=== PATIENT | female | born 1990 | race Caucasian/White ===

== ENCOUNTER → 2016-11-13 | Outpatient (CLI) | payer OTHER ==
[~2016-11-13] MED LIST: CIPROFLOXACIN750 MG PO; COLACE 100MG C100 MG PO; NORCO 5-325 TA1 EACH PO; ZYRTEC10 MG PO
== END ==
LOC: GENOP 11:40
DX: O99.89 Other specified diseases and conditions complicating pregnancy, childbirth and the puerperium (principal); Z3A.32 32 weeks gestation of pregnancy; R10.9 Unspecified abdominal pain
CPT/HCPCS: 81001; G0463

== ENCOUNTER → 2016-11-21 | Outpatient (CLI) | payer OTHER | LOC: KOH-I 10:00 | DX: R10.11 Right upper quadrant pain (principal) | CPT/HCPCS: 76705 ==

== ENCOUNTER 2016-12-29 02:41 | Inpatient (IN) | payer OTHER ==
[~2016-12-29] VITALS: Ht 160 cm; Wt 158.8 kg
[2016-12-29 04:05] LABS: RED BLOOD COUNT 4.38 M/UL (4.00-5.10); WHITE BLOOD COUNT 17.6 K/UL (4.5-11.0)
[2016-12-30 05:05] LABS: HEMOGLOBIN 9.9 gm/dl (12.3-15.3)
[2016-12-31] MEDS ORDERED: COLACE 100MG C100 MG PO (12:43)
== END 2016-12-31 11:20 | disposition home or self-care (01) | DRG 765 ==
LOC: GENOP 02:41 → OB 05:45
PROVIDERS: ADMIT Obstetrics & Gynecology
PROC: 10D00Z1 Extraction of Products of Conception, Low, Open Approach (ICD-10-PCS; principal; 2016-12-29 07:59)
DX: O34.211 Maternal care for low transverse scar from previous cesarean delivery (principal); Z68.44 Body mass index [BMI] 60.0-69.9, adult; N85.8 Other specified noninflammatory disorders of uterus; O99.214 Obesity complicating childbirth; E66.01 Morbid (severe) obesity due to excess calories; O13.4 Gestational [pregnancy-induced] hypertension without significant proteinuria, complicating childbirth; Z3A.38 38 weeks gestation of pregnancy; Z37.0 Single live birth
CPT/HCPCS: 36415; 81001; 82800; 85014; 85018; 85025; C9113; J0690; J1650; J2274; J2405; J2550; J2590; J2765; J3010; J3430; J7050; J7120

== ENCOUNTER 2017-01-14 11:19 | Day surgery (SDC) | payer OTHER ==
[~2017-01-14] VITALS: Ht 160 cm; Wt 142.9 kg
[~2017-01-14 11:19] MED LIST changes: -CIPROFLOXACIN750 MG PO; -NORCO 5-325 TA1 EACH PO; -ZYRTEC10 MG PO
[2017-01-14 11:51] LABS: RED BLOOD COUNT 4.45 M/UL (4.00-5.10); WHITE BLOOD COUNT 10.5 K/UL (4.5-11.0)
[2017-01-14] MEDS ORDERED: NORCO 5-325 TA1 EACH PO (11:58)
[2017-01-14] MEDS ORDERED: ZYRTEC10 MG PO (12:01)
[2017-01-15 06:32] LABS: HEMOGLOBIN 10.3 gm/dl (12.3-15.3)
[2017-01-16 05:44] LABS: RED BLOOD COUNT 4.08 M/UL (4.00-5.10); WHITE BLOOD COUNT 9.4 K/UL (4.5-11.0)
[2017-01-16 06:00] LABS: BUN/CREATININE RATIO 19 (0-10)
[2017-01-17] MEDS ORDERED: CIPROFLOXACIN750 MG PO (14:54)
== END 2017-01-17 15:28 | disposition home or self-care (01) ==
LOC: OR 11:19 → M/S 16:25 → OR 01-17 15:28
PROVIDERS: Internal Medicine Infectious Disease; Obstetrics & Gynecology
PROC: 0W9F0ZZ Drainage of Abdominal Wall, Open Approach (ICD-10-PCS; principal; 2017-01-14 13:30)
DX: O86.0 Infection of obstetric surgical wound (principal); I96 Gangrene, not elsewhere classified; O99.285 Endocrine, nutritional and metabolic diseases complicating the puerperium; E03.8 Other specified hypothyroidism; J45.909 Unspecified asthma, uncomplicated; G47.30 Sleep apnea, unspecified; Z88.0 Allergy status to penicillin; Z88.1 Allergy status to other antibiotic agents; Z86.69 Personal history of other diseases of the nervous system and sense organs; Z79.899 Other long term (current) drug therapy; Z88.2 Allergy status to sulfonamides
CPT/HCPCS: 36415; 80053; 81001; 84443; 84703; 85014; 85018; 85025; 87070; 87077; 87186; 87205; J1580; J1885; J2250; J2270; J2405; J2765; J2795; J7030; J7120

== ENCOUNTER 2017-01-31 20:37 | Emergency (ER) | payer OTHER ==
[~2017-01-31 20:37] MED LIST changes: +CIPROFLOXACIN750 MG PO; +NORCO 5-325 TA1 EACH PO; +ZYRTEC10 MG PO
== END 2017-01-31 23:00 | disposition home or self-care (01) ==
LOC: ER1 20:37
DX: B37.2 Candidiasis of skin and nail (principal); J45.909 Unspecified asthma, uncomplicated; Z88.0 Allergy status to penicillin; Z88.2 Allergy status to sulfonamides; Z79.891 Long term (current) use of opiate analgesic
CPT/HCPCS: 87070; 87205; 99283